=== PATIENT | male | born 1965 | race Caucasian/White ===

== ENCOUNTER 2017-05-17 14:44 | Inpatient (IN) ==
[2017-05-17 15:33] LABS: Bilirubin,Urine Negative (Negative); Blood,Urine Negative (Negative); Clarity,Urine Clear (Clear); Color,Urine Yellow (Yellow); Glucose,Urine (UA) Normal (Normal); Ketones,Urine Negative (Negative); Leukocyte Esterase,Urine Negative (Negative); Nitrite,Urine Negative (Negative); PH,Urine 5.5 pH Units (5.0-8.0); Protein,Urine Negative (Neg-Trace); Specific Gravity,Urine 1.019 (1.010-1.025); Urobilinogen,Urine Normal (Normal)
[2017-05-17 15:37] LABS: Amphetamine Screen,Urine Negative ng/mL (Cutoff=1000); Barbiturate Screen,Urine Negative ng/mL (Cutoff=200); Benzodiazepines Screen,Urine Negative ng/mL (Cutoff=200); Cannabinoid Screen,Urine Negative ng/mL (Cutoff = 50); Cocaine Screen,Urine Negative ng/mL (Cutoff= 300); Opiate Screen,Urine Negative ng/mL (Cutoff=300); Phencyclidine Screen,Urine Negative ng/mL (Cutoff=25)
--- NOTE | 2017-05-17 15:48 | Emergency Department Note ---
Disposition Clinical Impression: Suicidal ideation Disposition: Admitted As Inpatient Condition: Good Referrals: Marisela Anderson CNP [Primary Care Provider] - Forms: ED Satisfaction Letter Time of Disposition: 19:27 Psych HPI - General Chief Complaint: ED Psychiatric Symptoms Stated Complaint: SI Time Seen by Provider: 05/17/17 15:08 Source: patient Mode of arrival: ambulatory Limitations: no limitations Nursing Notes Reviewed: Yes Vital Signs Reviewed: Yes - History of Present Illness HPI Narrative: 51 year old male with HX of depression presents to the ED wit hcomplaints of SI , he staes tht he most recently lost his job and cant get another one and is living in his apartment without electricity and the bills are pilling up and he feels like he has no one. Marily states tht for the past two weeks the SI sypmtomt are gettting worse and that he thought about overdosing on oxycodone today. - Related Data Allergies Allergy/AdvReac Type Severity Reaction Status Date / Time No Known Allergies Allergy Verified 05/17/17 14:54 Constitutional: Denies: fever, chills, weakness, weight change Eyes: Denies: eye pain, eye discharge, vision change ENT ED: Denies: ear pain, throat pain, dental pain, hearing loss, epistaxis, congestion, dysphagia Cardiovascular: Denies: chest pain, palpitations, dyspnea on exertion, edema, syncope Respiratory: Denies: cough, dyspnea, wheezes, hemoptysis, stridor Gastrointestinal: Denies: abdominal pain, nausea, vomiting, diarrhea, constipation, hematemesis, melena, hematochezia Genitourinary: Denies: urgency, dysuria, frequency, hematuria Musculoskeletal: Denies: back pain, neck pain, arthralgia, myalgia Integumentary: Denies: rash, abrasion, lesions Neurological: Denies: headache, weakness, numbness, paresthesias, confusion, abnormal gait, vertigo Psychiatric: Reports: depression, suicidal thoughts. Denies: anxiety, homicidal thoughts, auditory hallucinations, visual hallucinations Endocrine: Denies: fatigue Hematological/Lymphatic: Denies: easy bleeding, easy bruising Allergic/Immunologic: Denies: facial swelling, urticaria Past Medical History - Past Medical History Medical history: Reports: hyperlipidemia, hypertension Psychiatric history: Reports: anxiety, depression - Social History Smoking Status: Never smoker Smokeless Tobacco Status: No Alcohol use: Reports: none Drug use: Reports: none Physical Exam - General Limitations: no limitations General appearance: alert - Head Head exam: atraumatic, normocephalic, normal inspection - Eye Eye exam: Present: normal appearance, PERRL, EOMI - Expanded Eye Exam Pupils: Left: reactive - ENT ENT exam: normal exam, normal oropharynx, mucous membranes moist - Expanded ENT Exam External ear exam: Present: normal external inspection Mouth exam: Present: normal external inspection Teeth exam: Present: normal inspection Throat exam: Present: normal inspection - Neck Neck exam: Present: normal inspection, full ROM, trachea midline - Chest Chest inspection: Present: normal inspection, symmetric chest wall rise - Respiratory Respiratory exam: Present: normal lung sounds bilaterally - Cardiovascular Cardiovascular exam: Present: regular rate, normal rhythm, normal heart sounds - Abdominal Exam Abdominal exam: Present: soft, Non-Tender. Absent: tenderness, distention, guarding, rebound, rigidity - Extremities Exam Extremities exam: Present: normal inspection, full ROM. Absent: tenderness, pedal edema - Expanded Upper Extremity Exam Shoulder exam: Present: normal inspection, full ROM Arm exam: Present: normal inspection, full ROM Elbow exam: Present: normal inspection, full ROM Forearm/Wrist exam: Present: normal inspection, full ROM Hand exam: Present: normal inspection, full ROM Vascular exam: Normal: capillary refill, radial pulse - Expanded Lower Extremity Exam Hip/Pelvis exam: Present: normal inspection, full ROM Upper leg exam: Present: normal inspection, full ROM Knee exam: Present: normal inspection, full ROM Lower leg exam: Present: normal inspection, full ROM Ankle exam: Present: normal inspection, full ROM Foot/toe exam: Present: normal inspection, full ROM Neurovascular/Tendon exam: Absent: motor deficit, sensory deficit, tendon deficit - Back Exam Back exam: Present: normal inspection, full ROM. Absent: tenderness - Neurological Exam Neurological exam: Present: alert, oriented X3 - Expanded Neurological Exam Patient oriented to: Present: person, place, time Coma Scale Eye Opening: Spontaneous Coma Scale Motor Response: Obeys Commands Coma Scale Verbal Response: Oriented Coma Scale Total: 15 - Psychiatric Psychiatric exam: Present: normal affect, normal mood - Skin Skin exam: Present: warm, dry, intact, normal color Course Course Narrative: we will do [facility] medical clearance and re-evaluate - Reevaluation(s) Reevaluation #1: patient is medically cleared. 1A has been consulted. Time: 16:54 - Consultations Consultation #1: 1A accepts patinet for admission Time: 19:26 Vital Signs Temperature 98.9 F 05/17/17 14:50 Pulse Rate 82 05/17/17 14:50 Respiratory Rate 18 05/17/17 14:50 Blood Pressure 162/101 05/17/17 14:50 O2 Sat by Pulse Oximetry 97 05/17/17 14:50 Temperature 98.9 F 05/17/17 14:50 Pulse Rate 82 05/17/17 14:50 Respiratory Rate 18 05/17/17 14:50 Blood Pressure 162/101 05/17/17 14:50 O2 Sat by Pulse Oximetry 97 05/17/17 14:50 Oxygen Delivery Oxygen Delivery Room Air Psych - Lab Data Result diagrams: 05/17/17 15:49 05/17/17 15:49 Lab Results 05/17/17 05/17/17 05/17/17 Range/Units 15:26 15:26 15:49 WBC 6.8 (4.3-11.1) K/mcL RBC 5.07 (4.19-5.50) M/mcL Hgb 15.4 (12.9-16.9) g/dL Hct 45.9 (37.5-50.1) % MCV 90.5 (83.0-100.0) fL MCH 30.4 (28.0-33.3) pg MCHC 33.6 (31.6-35.5) g/dL RDW 13.2 (11.5-14.5) % Plt Count 181 (140-400) K/mcL MPV 11.0 (9.4-12.4) fL Immature Gran % 0.6 (0-4) % Seg Neutrophils % 66.4 % Lymphocytes % 18.9 % Monocytes % 11.3 % Eosinophils % 1.8 % Basophils % 1.0 % Neutrophils # 4.5 (1.6-8.9) K/mcL Lymphocytes # 1.3 (0.6-4.6) K/mcL Monocytes # 0.8 (0.0-1.3) K/mcL Eosinophils # 0.1 (0.0-0.6) K/mcL Basophils # 0.1 (0.0-0.2) K/mcL Sodium (136-145) mEq/L Potassium (3.5-4.5) mEq/L Chloride (98-109) mEq/L Carbon Dioxide (19-29) mEq/L BUN (8-26) mg/dL Creatinine (0.72-1.25) mg/dL Est GFR ( Amer) (> 60) Est GFR (Non-Af Amer) (> 60) BUN/Creatinine Ratio (6-26) Glucose (70-99) mg/dL Calculated Osmolality (280-300) Calcium (8.6-10.8) mg/dL Urine Color Yellow (Yellow) Urine Clarity Clear (Clear) Urine pH 5.5 (5.0-8.0) pH Units Ur Specific [place] 1.019 (1.010-1.025) Urine Protein Negative (Neg-Trace) mg/dL Urine Glucose (UA) Normal (Normal) mg/dL Urine Ketones Negative (Negative) mg/dL Urine Blood Negative (Negative) Urine Nitrite Negative (Negative) Urine Bilirubin Negative (Negative) Urine Urobilinogen Normal (Normal) mg/dL Ur Leukocyte Esterase Negative (Negative) Salicylates (15-30) mg/dL Urine Opiates Screen Negative (Imgjud=036) ng/mL Acetaminophen (10-30) mcg/mL Ur Barbiturates Screen Negative (Brpvux=170) ng/mL Ur Phencyclidine Scrn Negative (Cutoff=25) ng/mL Ur Amphetamines Screen Negative (Icpyso=5530) ng/mL U Benzodiazepines Scrn Negative (Mikpjt=854) ng/mL Urine Cocaine Screen Negative (Cutoff= 300) ng/mL U Marijuana (THC) Screen Negative (Cutoff = 50) ng/mL Ethyl Alcohol (0-10) mg/dL 05/17/17 Range/Units 15:49 WBC (4.3-11.1) K/mcL RBC (4.19-5.50) M/mcL Hgb (12.9-16.9) g/dL Hct (37.5-50.1) % MCV (83.0-100.0) fL MCH (28.0-33.3) pg MCHC (31.6-35.5) g/dL RDW (11.5-14.5) % Plt Count (140-400) K/mcL MPV (9.4-12.4) fL Immature Gran % (0-4) % Seg Neutrophils % % Lymphocytes % % Monocytes % % Eosinophils % % Basophils % % Neutrophils # (1.6-8.9) K/mcL Lymphocytes # (0.6-4.6) K/mcL Monocytes # (0.0-1.3) K/mcL Eosinophils # (0.0-0.6) K/mcL Basophils # (0.0-0.2) K/mcL Sodium 138 (136-145) mEq/L Potassium 3.8 (3.5-4.5) mEq/L Chloride 104 (98-109) mEq/L Carbon Dioxide 24 (19-29) mEq/L BUN 13 (8-26) mg/dL Creatinine 1.19 (0.72-1.25) mg/dL Est GFR ( Amer) > 60 (> 60) Est GFR (Non-Af Amer) > 60 (> 60) BUN/Creatinine Ratio 11 (6-26) Glucose 108 H (70-99) mg/dL Calculated Osmolality 287 (280-300) Calcium 9.4 (8.6-10.8) mg/dL Urine Color (Yellow) Urine Clarity (Clear) Urine pH (5.0-8.0) pH Units Ur Specific [place] (1.010-1.025) Urine Protein (Neg-Trace) mg/dL Urine Glucose (UA) (Normal) mg/dL Urine Ketones (Negative) mg/dL Urine Blood (Negative) Urine Nitrite (Negative) Urine Bilirubin (Negative) Urine Urobilinogen (Normal) mg/dL Ur Leukocyte Esterase (Negative) Salicylates < 5.0 L (15-30) mg/dL Urine Opiates Screen (Ndduvo=781) ng/mL Acetaminophen < 1.0 L (10-30) mcg/mL Ur Barbiturates Screen (Tsgcny=266) ng/mL Ur Phencyclidine Scrn (Cutoff=25) ng/mL Ur Amphetamines Screen (Ztcnuf=3123) ng/mL U Benzodiazepines Scrn (Rmajys=215) ng/mL Urine Cocaine Screen (Cutoff= 300) ng/mL U Marijuana (THC) Screen (Cutoff = 50) ng/mL Ethyl Alcohol < 10 (0-10) mg/dL Psychiatric Medical Clearance - Medical Clearance Checklist Medical History: No Social History Section defined Current Vitals: Last Vital Signs Temp 98.9 F 05/17/17 14:50 Pulse 82 05/17/17 14:50 Resp 18 05/17/17 14:50 BP 162/101 05/17/17 14:50 Pulse Ox 97 05/17/17 14:50 Psychiatric Lab Panel: Drug Levels and Toxicity 05/17/17 05/17/17 15:26 15:49 Urine Opiates Screen Negative Acetaminophen < 1.0 L Ur Barbiturates Screen Negative Ur Phencyclidine Scrn Negative Ur Amphetamines Screen Negative U Benzodiazepines Scrn Negative Urine Cocaine Screen Negative U Marijuana (THC) Screen Negative Ethyl Alcohol < 10 Abnormal Labs: Abnormal lab results Glucose 108 mg/dL (70-99) H 05/17/17 15:49 Salicylates < 5.0 mg/dL (15-30) L 05/17/17 15:49 Acetaminophen < 1.0 mcg/mL (10-30) L 05/17/17 15:49 Statement of Medical Clearance: I have evaluated the patient, reviewed diagnostic information, and certify that the patient's medical condition is sufficiently stable that transfer to the psychiatric unit does not pose a significant risk of deterioration.
[2017-05-17 16:03] LABS: Basophils # 0.1 K/mcL (0.0-0.2); Eosinophils # 0.1 K/mcL (0.0-0.6); Eosinophils % 1.8 %; Hematocrit 45.9 % (37.5-50.1); Hemoglobin 15.4 g/dL (12.9-16.9); Immature Granulocytes % 0.6 % (0-4); Lymphocytes # 1.3 K/mcL (0.6-4.6); Lymphocytes % 18.9 %; Mean Corpuscular HGB Conc 33.6 g/dL (31.6-35.5); Mean Corpuscular Hemoglobin 30.4 pg (28.0-33.3); Mean Corpuscular Volume 90.5 fL (83.0-100.0); Monocytes # 0.8 K/mcL (0.0-1.3); Monocytes % 11.3 %; Neutrophils # 4.5 K/mcL (1.6-8.9); Platelet Count 181 K/mcL (140-400); Red Blood Count 5.07 M/mcL (4.19-5.50); Red Cell Distribution Width 13.2 % (11.5-14.5); Segmented Neutrophils % 66.4 %
[2017-05-17 16:45] LABS: BUN/Creatinine Ratio 11 (6-26); Blood Urea Nitrogen 13 mg/dL (8-26); Calcium 9.4 mg/dL (8.6-10.8); Carbon Dioxide 24 mEq/L (19-29); Chloride 104 mEq/L (98-109); Glucose 108 mg/dL (70-99); Osmolality,Calculated 287 (280-300); Potassium 3.8 mEq/L (3.5-4.5); Sodium 138 mEq/L (136-145); eGFR For African Americans > 60 (> 60); eGFR For Non-African Americans > 60 (> 60)
[2017-05-17 16:46] LABS: Acetaminophen < 1.0 mcg/mL (10-30); Ethanol < 10 mg/dL (0-10); Salicylate < 5.0 mg/dL (15-30)
[2017-05-17] MEDS ORDERED: MOM Conc 10 ML UD.LIQ PO PRN (20:40)
[2017-05-17] MEDS ORDERED: traZODone 50 MG TABLET PO PRN (20:40)
[2017-05-17] MEDS ORDERED: Haloperidol Lactate 5 MG/ML VIAL IM PRN (20:40)
[2017-05-17] MEDS ORDERED: hydrOXYzine pamoate 25 MG CAPSULE PO PRN (20:40)
[2017-05-17] MEDS ORDERED: Mag Hydrox/Al Hydrox/Simeth 30 ML UDC PO PRN (20:40)
[2017-05-17] MEDS ORDERED: *HR* LORazepam 1 MG TABLET PO PRN (20:40)
[2017-05-17] MEDS ORDERED: *HR* LORazepam 2 MG/ML VIAL IM PRN (20:40)
[2017-05-18] MEDS: Acetaminophen 325 MG TABLET PO PRN (12:40)
--- NOTE | 2017-05-18 14:54 | Psychiatry History & Physical ---
Date of Encounter: 05/18/17 Time of Encounter: 14:40 History of Present Illness Patient Stated Chief Complaint: "I was so depressed." Medicare Admission Attestation: For traditional Medicare patients the provided hospital inpatient services are reasonable and necessary and in the case of services not specified as inpatient -only under 42 CFR 419.22 (n), that they are appropriately provided as inpatient services in accordance 42 CFR 412.3. For Critical Access Hospital the patient may reasonably be expected to be discharged or transferred to a hospital within 96 hours after admission to the Critical Access Hospital. Admitted From: Emergency Dept Plans for Post Hospital Care: Home History of Present Illness: Mr. Rizzo is a 51 year old male with a long-standing history of depression and anxiety who presented to the hospital with increasing depression and suicidal ideation. Patient reports that he has been struggling increasingly over the past 5-6 years since his mother and father . He states he use to live with his mother and father. He was living with his sisters but they encouraged him to get his own apartment. 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 He states he really enjoys his job but he is having trouble living alone and he feels depressed by himself. He struggles to organize his life and pay his own bills. He is more hopeful today but states he was feeling very depressed with a plan to overdose on pain medications. Patient states he has "a whole ton pain meds." Patient reports that he has been off antidepressants because he has been unable to afford his medications. Today he denies suicidal ideation but continues to endorse depressed mood. He feels grief over the loss of his parents and has trouble dealing with this. He does feel supported by his sisters but also knows that they do not understand that living on his own is hard for him. \\ Past Med Surg Social Fam HX - Past Medical History Medical history: hyperlipidemia, hypertension - Past Psychiatric History Psychiatric history: Reports: anxiety, depression. Denies: prior suicide attempt, previous psychiatric hospitalization Past psychiatric history details: Patient was getting meds from outpatient doctor. No counselor. No psychiatrist. No history of inpatient admissions. No previous history of suicide attempts. Family psychiatric history: Yes Family Psychiatric History Details: Patient's sister has depression. Family History of Suicide: None - Past Surgical History Surgical History: cholecystectomy - Social History Smoking Status: Never smoker Smokeless Tobacco Status: No Alcohol use: none Drug use: none Occupational status: employed Current living situation: Homeless Medications & Allergies Citalopram Hydrobromide [Citalopram HBr] 10 mg PO DAILY 05/17/17 [History] Lisinopril/Hydrochlorothiazide [Zestoretic 20-25 mg Tablet] 1 each PO DAILY [History] Lovastatin [Mevacor] 20 mg PO HS 05/17/17 [History] 3 Allergy/AdvReac Type Severity Reaction Status Date / Time No Known Allergies Allergy Verified 05/17/17 14:54 Review of Systems Constitutional: Denies: fever, chills, weakness, weight change Eyes: Denies: eye pain, vision change Ears, Nose, Throat: Denies: ear pain, throat pain, dental pain, hearing loss, congestion Cardiovascular: Denies: chest pain, palpitations, dyspnea on exertion Respiratory: Denies: cough, dyspnea, wheezes Gastrointestinal: Denies: abdominal pain, nausea, vomiting, diarrhea, constipation Genitourinary male: Denies: urgency, dysuria, frequency, genital lesions Genitourinary female: Denies: urgency, dysuria, frequency, abnormal menses, dyspareunia Musculoskeletal: Denies: joint swelling, joint pain Integumentary: Denies: rash, lesions, pruritus Neurological: Denies: headache, weakness, numbness, memory loss Psychiatric: Reports: depression, anxiety, abnormal sleep pattern, suicidal ideation, difficulty concentrating, hopelessness, irritability. Denies: change in appetite, homicidal ideation, auditory hallucinations, visual hallucinations Endocrine: Denies: fatigue, heat or cold intolerance Hematologic/Lymphatic: Denies: easy bruising, lymphadenopathy Allergic/Immunologic: Denies: urticaria, itchy eyes Mental Status Exam Patient orientation: Yes Person, Yes Time, Yes Place Level of alertness: Alert Patient appearance: Appropriate Behavior: calm, cooperative Psychomotor activity: Normal Eye contact: Maintains Eye Contact Mood description: Depressed, Anxious Affect description: congruent with mood Speech pattern: Normal rate, Normal rhythm, Normal tone Speech volume: Normal Thought process: Intact, Logical Thought content: No Suicidal ideation, No Homicidal ideation Perceptual disturbances: No Auditory hallucinations, No Visual hallucinations Attention span: Capable of Focused Attention Memory description: Grossly Intact Patient reliability: Reliable Historian Intelligence estimate: Average Judgment: Limited Insight: Minimal Exam - HEENT Head exam IM: Present: atraumatic Eye exam IM: Present: EOMI - Neurological Neurological exam IM: Present: CN II-XII intact - Extremities Extremities exam IM: Present: full ROM Results - Vital Signs Vital signs: Temp Pulse Resp BP Pulse Ox 98.0 F 66 16 136/96 97 05/18/17 08:32 05/18/17 08:32 05/18/17 08:32 05/18/17 08:32 05/17/17 20:01 - Labs Labs: Laboratory Last Values WBC 6.8 K/mcL (4.3-11.1) 05/17/17 15:49 RBC 5.07 M/mcL (4.19-5.50) 05/17/17 15:49 Hgb 15.4 g/dL (12.9-16.9) 05/17/17 15:49 Hct 45.9 % (37.5-50.1) 05/17/17 15:49 MCV 90.5 fL (83.0-100.0) 05/17/17 15:49 MCH 30.4 pg (28.0-33.3) 05/17/17 15:49 MCHC 33.6 g/dL (31.6-35.5) 05/17/17 15:49 RDW 13.2 % (11.5-14.5) 05/17/17 15:49 Plt Count 181 K/mcL (140-400) 05/17/17 15:49 MPV 11.0 fL (9.4-12.4) 05/17/17 15:49 Immature Gran % 0.6 % (0-4) 05/17/17 15:49 Seg Neutrophils % 66.4 % 05/17/17 15:49 Lymphocytes % 18.9 % 05/17/17 15:49 Monocytes % 11.3 % 05/17/17 15:49 Eosinophils % 1.8 % 05/17/17 15:49 Basophils % 1.0 % 05/17/17 15:49 Neutrophils # 4.5 K/mcL (1.6-8.9) 05/17/17 15:49 Lymphocytes # 1.3 K/mcL (0.6-4.6) 05/17/17 15:49 Monocytes # 0.8 K/mcL (0.0-1.3) 05/17/17 15:49 Eosinophils # 0.1 K/mcL (0.0-0.6) 05/17/17 15:49 Basophils # 0.1 K/mcL (0.0-0.2) 05/17/17 15:49 Sodium 138 mEq/L (136-145) 05/17/17 15:49 Potassium 3.8 mEq/L (3.5-4.5) 05/17/17 15:49 Chloride 104 mEq/L (98-109) 05/17/17 15:49 Carbon Dioxide 24 mEq/L (19-29) 05/17/17 15:49 BUN 13 mg/dL (8-26) 05/17/17 15:49 Creatinine 1.19 mg/dL (0.72-1.25) 05/17/17 15:49 Est GFR ( Amer) > 60 (> 60) 05/17/17 15:49 Est GFR (Non-Af Amer) > 60 (> 60) 05/17/17 15:49 BUN/Creatinine Ratio 11 (6-26) 05/17/17 15:49 Glucose 108 mg/dL (70-99) H 05/17/17 15:49 Calculated Osmolality 287 (280-300) 05/17/17 15:49 Calcium 9.4 mg/dL (8.6-10.8) 05/17/17 15:49 Urine Color Yellow (Yellow) 05/17/17 15:26 Urine Clarity Clear (Clear) 05/17/17 15:26 Urine pH 5.5 pH Units (5.0-8.0) 05/17/17 15:26 Ur Specific [place] 1.019 (1.010-1.025) 05/17/17 15:26 Urine Protein Negative mg/dL (Neg-Trace) 05/17/17 15:26 Urine Glucose (UA) Normal mg/dL (Normal) 05/17/17 15:26 Urine Ketones Negative mg/dL (Negative) 05/17/17 15:26 Urine Blood Negative (Negative) 05/17/17 15:26 Urine Nitrite Negative (Negative) 05/17/17 15:26 Urine Bilirubin Negative (Negative) 05/17/17 15:26 Urine Urobilinogen Normal mg/dL (Normal) 05/17/17 15:26 Ur Leukocyte Esterase Negative (Negative) 05/17/17 15:26 Salicylates < 5.0 mg/dL (15-30) L 05/17/17 15:49 Urine Opiates Screen Negative ng/mL (Iwgtrx=986) 05/17/17 15:26 Acetaminophen < 1.0 mcg/mL (10-30) L 05/17/17 15:49 Ur Barbiturates Screen Negative ng/mL (Qfvymc=838) 05/17/17 15:26 Ur Phencyclidine Scrn Negative ng/mL (Cutoff=25) 05/17/17 15:26 Ur Amphetamines Screen Negative ng/mL (Jkgigx=1214) 05/17/17 15:26 U Benzodiazepines Scrn Negative ng/mL (Jjffwx=072) 05/17/17 15:26 Urine Cocaine Screen Negative ng/mL (Cutoff= 300) 05/17/17 15:26 U Marijuana (THC) Screen Negative ng/mL (Cutoff = 50) 05/17/17 15:26 Ethyl Alcohol < 10 mg/dL (0-10) 05/17/17 15:49 Assessment and Plan (1) Major depressive disorder, recurrent Current visit: Yes Status: Acute Plan: Admit inpatient for safety and stabilization, Close observation, Suicide Precautions per unit protocol, Encourage participation in unit milieu, Group Therapy, Monitor sleep, Monitor appetite Additional Plan: Admits 1A for psychiatric stabilization. We will restart Celexa 10 mg by mouth daily and increased to 20 mg. Trazodone as needed for sleep. Encourage positive coping strategies and group attendance. Risks, benefits, side effects, alternatives discussed w/pt: Yes Patient agreeable to treatment: Yes Estimated Length of Stay (Days): 3 Qualifiers: Active/Remission status: currently active Major depression episode severity : severe Psychotic features: without psychotic features Qualified Code(s): F33.2 - Major depressive disorder, recurrent severe without psychotic features (2) Anxiety Current visit: Yes Status: Acute Plan: Admit inpatient for safety and stabilization, Close observation, Suicide Precautions per unit protocol, Encourage participation in unit milieu, Group Therapy, Monitor sleep, Monitor appetite Additional Plan: Encourage positive coping strategies. Encourage outpatient compliance with meds and therapy. Risks, benefits, side effects, alternatives discussed w/pt: Yes Patient agreeable to treatment: Yes
--- NOTE | 2017-05-19 08:22 | Discharge Summary ---
Date of Encounter: 05/19/17 Time of Encounter: 07:45 Diagnosis - Discharge Diagnosis (1) Major depressive disorder, recurrent Priority: Primary Status: Acute Qualifiers: Active/Remission status: currently active Major depression episode severity : severe Psychotic features: without psychotic features Qualified Code(s): F33.2 - Major depressive disorder, recurrent severe without psychotic features (2) Anxiety Priority: Secondary Status: Acute Medications - Discharge Medications Prescriptions: Citalopram Hydrobromide [Citalopram HBr] 20 mg PO DAILY #60 tab Lisinopril/Hydrochlorothiazide [Zestoretic 20-25 mg Tablet] 1 each PO DAILY #30 Lovastatin [Mevacor] 20 mg PO HS #30 Citalopram Hydrobromide [Citalopram HBr] 20 mg PO DAILY #60 tab 05/19/17 [Rx] Lisinopril/Hydrochlorothiazide [Zestoretic 20-25 mg Tablet] 1 each PO DAILY #30 05/19/17 [Rx] Lovastatin [Mevacor] 20 mg PO HS #30 05/19/17 [Rx] 3 Allergy/AdvReac Type Severity Reaction Status Date / Time No Known Allergies Allergy Verified 05/17/17 14:54 Provider Date of admission: 05/17/17 19:52 Primary care physician: PCP NONE Discharging clinician: Liza Anderson Assessment and Plan - Patient/Caregiver Discharge Instructions Activity: resume usual activities as tolerated Diet: regular diet - Follow up Plan Follow up with: [facility] [Outside] (The above appointment is with [facility] for mental health counseling services.) [facility] [Outside] - 05/30/17 9:15 am (The above appointment is with Marisela Cristobal for primary health care and medication management services.) Functional capacity at discharge: independent ambulation Overall status at discharge: Stable Disposition: Home, Self-Care Hospital Course Hospital course: Mr. Rizzo is a 51 year old male with a history of depression and anxiety who presented to the hospital with depression and suicidal ideation. Patient had a plan to overdose on excess pain medication. He was admitted to [facility] for psychiatric stabilization. Patient was incorporated into the therapeutic milieu , group and individual as well as recreational therapy. He was also offered psychoeducational materials supportive therapy. He was placed on suicide precautions and close observation per unit protocol. Patient attended groups and unit activities. He was cooperative with peers and staff. Patient reports that his depression medications are helpful to him but he was unable to get them because he could not afford them. Patient was restarted on Celexa and it was increased to 20 mg by mouth daily. He tolerated medication changes well. Throughout the course of hospital stay the patient's mood improved. He found out some positive information about a new place to live as well as a job. He is future oriented and willing to follow-up as an outpatient. Patient's sister has been contacted who is removing any medications from the home and did confirm there are no guns or weapons living space. At the time of discharge patient denied suicidal or homicidal ideation, intent, or plan. He is discharged in stable condition. - Time Spent with Patient Total time spent providing and/or coordinating discharge services: Less than 30 minutes Quality - Multiple Antipsychotics Patient discharged on 2 or more antipsychotic medications: No Procedures - Procedures Procedures: Medication Management, Crisis Stabilization, Supportive Therapy, Group Therapy, Psychoeducational Therapy Mental Status Exam - Mental Status Exam Patient orientation: Yes Person, Yes Time, Yes Place Level of alertness: Alert Patient appearance: Appropriate, Well Groomed Behavior: calm, cooperative Psychomotor activity: Normal Eye contact: Maintains Eye Contact Mood description: Euthymic/stable Affect description: congruent with mood, full range Speech pattern: Normal rate, Normal rhythm, Normal tone Speech Volume: Normal Thought process: Linear, Goal Oriented Thought Content: No Suicidal ideation, No Homicidal ideation, No Overt delusions Perceptual Disturbances: No Auditory hallucinations, No Visual hallucinations Judgment: Limited Insight: Partial
[2017-05-19] MEDS: Acetaminophen 325 MG TABLET PO PRN (08:43)
[2017-05-19 08:51] VITALS: BP 129/88
== END 2017-05-19 13:10 | disposition home or self-care (01) | DRG 885 ==
LOC: EMEROO 14:44 → 1ANU 19:52
PROVIDERS: ADMIT Student in an Organized Health Care Education/Training Program; ATTEND Student in an Organized Health Care Education/Training Program